=== PATIENT | female | born 1990 | race Caucasian/White ===

== ENCOUNTER 2020-07-15 10:59 | Emergency (ER) | payer OTHER, MEDICAID ==
[2020-07-15] MEDS ORDERED: Take Home: Acetaminophen/Codeine 300 MG/30 MG, 5 Tab Pack PO ONE (11:17)
[2020-07-15] MEDS ORDERED: Take Home: Cyclobenzaprine 10 MG Tab, 4 Tab Pack PO ONE (11:17)
[2020-07-15 11:20] VITALS: BP 121/93; PULSE 109
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
== END 2020-07-15 11:35 | disposition home or self-care (01) ==
LOC: VM.ED 10:59
DX: S39.012A Strain of muscle, fascia and tendon of lower back, initial encounter (principal); F41.9 Anxiety disorder, unspecified; F32.9 Major depressive disorder, single episode, unspecified; E66.9 Obesity, unspecified; F17.210 Nicotine dependence, cigarettes, uncomplicated; Z68.41 Body mass index [BMI] 40.0-44.9, adult; Z88.2 Allergy status to sulfonamides; Z79.899 Other long term (current) drug therapy; W00.0XXA Fall on same level due to ice and snow, initial encounter; Y99.0 Civilian activity done for income or pay
CPT/HCPCS: 99283; A9270-GY

== ENCOUNTER 2020-07-16 17:41 | Emergency (ER) | payer OTHER, MEDICAID ==
[2020-07-16 17:58] VITALS: BP 141/65; PULSE 94
[2020-07-16] MEDS ORDERED: Ketorolac 30 MG/ML SDV IM ONE (18:17)
[2020-07-16] MEDS ORDERED: Diazepam 5 MG Tab PO ONE (18:18)
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
--- NOTE | 2020-07-16 19:07 | CR ---
[id number] RAD/RAD Sacrum and Coccyx Exam: RAD Sacrum and Coccyx Clinical Data: TRAUMA COMPARISON: NO PREVIOUS SIMILAR EXAM IS AVAILABLE FINDINGS: No fracture is seen Consider MRI if needed IMPRESSION: NEGATIVE PLAIN FILM EXAM Reggie Sierra MD 07/16/20 [id number] Thank you for allowing us to participate in the care of your patient.
[2020-07-16] MEDS ORDERED: Take Home: Acetaminophen/HYDROcodone 325-5 MG, 5 Tab Pack PO ONE (19:28)
[2020-07-16] MEDS ORDERED: Diazepam 2 MG Tab PO ONE (19:39)
== END 2020-07-16 20:03 | disposition home or self-care (01) ==
LOC: VM.ED 17:41
DX: S39.92XA Unspecified injury of lower back, initial encounter (principal); F41.9 Anxiety disorder, unspecified; F32.9 Major depressive disorder, single episode, unspecified; F17.210 Nicotine dependence, cigarettes, uncomplicated; E66.9 Obesity, unspecified; Z68.41 Body mass index [BMI] 40.0-44.9, adult; Z88.2 Allergy status to sulfonamides; Z79.899 Other long term (current) drug therapy
CPT/HCPCS: 72220; 96372; 99283; A9270-GY; J1885

== ENCOUNTER 2020-10-20 18:29 | Emergency (ER) | payer MEDICAID ==
[2020-10-20 18:52] LABS: BARBITURATE SCREEN,URINE NEGATIVE (NEGATIVE); BENZODIAZEPINES SCREEN,URINE NEGATIVE (NEGATIVE); EDDP,URINE SCREEN NEGATIVE (NEGATIVE); METHAMPHETAMINE SCREEN, URINE NEGATIVE (NEGATIVE); TCA SCREEN,URINE NEGATIVE (NEGATIVE); THC SCREEN,URINE 50 NG/ML NEGATIVE (NEGATIVE)
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
[2020-10-20] MEDS ORDERED: Nitrofurantoin Monohydrate/Macrocrystalline 100 MG Cap PO ONE (19:19)
[2020-10-20 19:28] VITALS: BP 115/79; PULSE 110
[2020-10-20 19:31] LABS: ACETAMINOPHEN 0 ug/ml (10-30); ANION GAP 16.5 mmol/L (5-15); CHLORIDE,CL 104 mmol/L (98-107); SODIUM,NA 141 mmol/L (136-145)
[2020-10-20] MEDS ORDERED: Take Home: Nitrofurantoin Monohydrate/Macrocrystalline 100 MG, 2 Cap Pack PO ONE (20:02)
== END 2020-10-20 21:00 | disposition home or self-care (01) ==
LOC: VM.ED 18:29
DX: F32.9 Major depressive disorder, single episode, unspecified (principal); N39.0 Urinary tract infection, site not specified; E66.9 Obesity, unspecified; Z68.41 Body mass index [BMI] 40.0-44.9, adult; Z88.2 Allergy status to sulfonamides; Z79.899 Other long term (current) drug therapy
CPT/HCPCS: 36415; 80053; 80143; 80305-QW; 80307; 81001; 81025; 83735; 84443; 85025; 85610; 85730; 87086; 87088; 87186; 99284; 99285; A9270-GY

== ENCOUNTER 2021-10-27 16:17 | Emergency (ER) | payer MEDICAID ==
[2021-10-27 16:43] VITALS: BP 141/87; PULSE 106
== END 2021-10-27 17:22 | disposition home or self-care (01) ==
LOC: VM.ED 16:17
DX: Z48.02 Encounter for removal of sutures (principal); E66.9 Obesity, unspecified; Z88.2 Allergy status to sulfonamides; Z68.30 Body mass index [BMI] 30.0-30.9, adult
CPT/HCPCS: 99281; 99283

== ENCOUNTER 2024-01-08 19:22 | Emergency (ER) | payer MEDICAID ==
[2024-01-08] MEDS: Ketorolac 30 MG/ML SDV IM ONE (19:34)
[2024-01-08] MEDS: Take Home: Acetaminophen/Codeine 300 MG/30 MG, 5 Tab Pack PO ONE (19:35)
[2024-01-08 19:46] VITALS: BP 117/66; PULSE 91
== END 2024-01-08 19:40 | disposition home or self-care (01) ==
LOC: VM.ED 19:22
DX: T23.252A Burn of second degree of left palm, initial encounter (principal); T31.0 Burns involving less than 10% of body surface; E66.9 Obesity, unspecified; Z88.2 Allergy status to sulfonamides
CPT/HCPCS: 96372; 99283; A9270; J1885